=== PATIENT | male | born 1985 | race Caucasian/White ===

== ENCOUNTER 2019-04-20 23:56 | Emergency (ER) | payer BC ==
[~2019-04-20] VITALS: Ht 162.6 cm; Wt 94.0 kg
[2019-04-21] MEDS ORDERED: CLINDAMYCIN HCL 150MG CAPSULE PO STA (01:20)
[2019-04-21] MEDS ORDERED: ACETAMINOPHEN 325MG TABLET PO ONE (01:30)
[2019-04-21 01:57] VITALS: BP 120/84
== END 2019-04-21 02:04 | disposition home or self-care (01) ==
LOC: ER 23:56
DX: L03.311 Cellulitis of abdominal wall (principal); L02.211 Cutaneous abscess of abdominal wall
CPT/HCPCS: 99283

== ENCOUNTER 2019-04-22 11:11 | Emergency (ER) | payer BC ==
[~2019-04-22] VITALS: Ht 162.6 cm; Wt 91.0 kg
[2019-04-22] MEDS ORDERED: LIDOCAINE HCL/PF 1% 10 MG/ML 5ML VIAL IJ ONE (12:00)
[2019-04-22] MEDS ORDERED: IBUPROFEN 600MG TABLET PO ONE (12:30)
[2019-04-22 13:15] VITALS: BP 115/72
== END 2019-04-22 13:19 | disposition home or self-care (01) ==
LOC: ER 11:18
DX: L02.211 Cutaneous abscess of abdominal wall (principal); L03.311 Cellulitis of abdominal wall
CPT/HCPCS: 10060; 99283; J3490; Z7610

== ENCOUNTER 2019-11-24 10:35 | Emergency (ER) | payer BC ==
[~2019-11-24] VITALS: Ht 165.1 cm; Wt 100.0 kg
[2019-11-24 10:49] VITALS: BP 140/88
[2019-11-24] MEDS ORDERED: LIDOCAINE HCL/EPINEPHRINE 1%-EPI 1:100,000 20 ML VIAL INFIL ONE (11:30)
[2019-11-24] MEDS ORDERED: LIDOCAINE HCL/EPINEPHRINE 1%-EPI 1:100,000 30 ML VIAL INFIL ONE (11:30)
== END 2019-11-24 15:08 | disposition home or self-care (01) ==
LOC: ER 10:35
DX: S41.132A Puncture wound without foreign body of left upper arm, initial encounter (principal); Z98.890 Other specified postprocedural states; W22.8XXA Striking against or struck by other objects, initial encounter; Y93.H2 Activity, gardening and landscaping; Y92.017 Garden or yard in single-family (private) house as the place of occurrence of the external cause
CPT/HCPCS: 10060; 73200; 99284; J3490